=== PATIENT | female | born 1985 | race African-American/Black ===

== ENCOUNTER 2016-07-11 17:17 | Emergency (ER) | payer MEDICAID ==
[~2016-07-11] VITALS: Ht 165.1 cm; Wt 104.5 kg
[~2016-07-11 17:17] MED LIST: BENT20TA PO; PANT20 PO; ZITHTAB PO; ZOFR4TAB3 SL
[2016-07-11 17:19] VITALS: BP 140/71; PULSE 97; RESP 15; TEMP 98.2; O2SAT 100
--- NOTE | 2016-07-11 18:37 | PD ---
HPI Chief Complaint: Respiratory Distress Time Seen by Provider: 18:35 Travel History International Travel<30 days: No Contact w/Intl Traveler<30days: No Traveled to known affect area: No History of Present Illness HPI 31-year-old Afro-[place] female coming in with history of asthma, with 3 day history of increasing worsening wheezing and shortness of breath. She states no specific recent illness, but states she has had some chills. She is a nonsmoker. She states she had albuterol inhalers previously but ran out recently. He denies headache, sore throat, ear pain, or other respiratory symptoms. She denies heartburn or nausea, vomiting, or diarrhea. Patient has no known drug allergies. PFSH Past Medical History Asthma: Yes Blood Disorders: No Diabetes: Yes (Gestational diabetes) Diminished Hearing: No Respiratory: Yes Immunizations Current: Yes ?: Not LMP: jun 21 : 3 Para: 3 Past Surgical History Section: Yes Gynecologic Surgery: Yes Social History Alcohol Use: No Tobacco Use: No Substance Use: No Allergies-Medications (Allergen,Severity, Reaction): Coded Allergies: No Known Allergies (Verified , 07/11/16) Reported Meds & Prescriptions Reported Meds & Active Scripts Active Prednisone 20 Mg Tab 20 Mg PO BID Azithromycin 250 Mg Tab 250 Mg PO DIRECTED Take 2 tabs (500 mg) on day 1 then 1 tab daily x 4 days. Ventolin Hfa 18 GM Inh (Albuterol Sulfate) 90 Mcg/Act Aer 2 Puff INH Q4-6H PRN Protonix (Pantoprazole Sodium) 20 Mg Tab 20 Mg PO DAILY Bentyl (Dicyclomine HCl) 20 Mg Tab 20 Mg PO TID Zofran Odt (Ondansetron Odt) 4 Mg Tab 4 Mg SL Q6HR PRN Zithromax Z-Luis (Azithromycin) 250 Mg Dspk 250 Mg PO DIRECTED 500 MG (2 tabs) day 1, then 1 tab days 2-5. Review of Systems Except as stated in HPI: all other systems reviewed are Neg General / Constitutional: No: Fever Eyes: No: Visual changes HENT: No: Headaches Cardiovascular: No: Chest Pain or Discomfort Respiratory: Positive: Cough, Shortness of Breath, Wheezing Gastrointestinal: No: Abdominal Pain Genitourinary: No: Dysuria Musculoskeletal: No: Pain Skin: No Rash Neurologic: No: Weakness Psychiatric: No: Depression Endocrine: No: Polydipsia Hematologic/Lymphatic: No: Easy Bruising Physical Exam Narrative GENERAL: Patient appears mildly anxious and in mild respiratory distress. SKIN: Warm and dry. HEAD: Atraumatic. Normocephalic. EYES: Pupils equal and round. No scleral icterus. No injection or drainage. ENT: No nasal bleeding or discharge. Mucous membranes pink and moist. NECK: Trachea midline. No JVD. CARDIOVASCULAR: Regular rate and rhythm. RESPIRATORY: No accessory muscle use. Diffuse wheezes throughout to auscultation. Breath sounds are diminished throughout bilaterally. GASTROINTESTINAL: Abdomen soft, non-tender, nondistended. Hepatic and splenic margins not palpable. MUSCULOSKELETAL: Extremities without clubbing, cyanosis, or edema. No obvious deformities. NEUROLOGICAL: Awake and alert. No obvious cranial nerve deficits. Motor grossly within normal limits. Five out of 5 muscle strength in the arms and legs. Normal speech. PSYCHIATRIC: Appropriate mood and affect; insight and judgment normal. Data Data Last Documented VS Vital Signs Date Time Temp Pulse Resp B/P Pulse Ox O2 Delivery O2 Flow Rate FiO2 07/11/16 17:19 98.2 97 15 140/71 100 Orders Chest, Single Ap (07/11/16 18:34) Prednisone (Deltasone) (07/11/16 18:45) Albuterol-Ipratropium Neb (Duoneb Neb) (07/11/16 18:45) MDM Medical Decision Making Medical Screen Exam Complete: Yes Emergency Medical Condition: Yes Differential Diagnosis Asthma with acute exacerbation. Wheezing. Short of breath Narrative Course Patient is medically stable at time of exam. Patient is given prednisone 60 mg by mouth now. Patient is given DuoNeb 3 with symptomatic improvement. Chest x-ray shows no acute process per radiologist. Patient is felt to be stable be discharged home. Patient is discharged home with prednisone 20 mg twice a day for 7 days. Patient is given Ventolin metered-dose inhaler 2 puffs every 4-6 hours when necessary wheeze. Patient is given azithromycin Dosepak as well. Patient is to follow-up with primary care physician as discussed. Patient can return the emergency Department with worsening symptoms as needed. Diagnosis Primary Impression: Wheezy bronchitis Referrals: Primary Care Physician Patient Instructions: General Instructions Additional Instructions: Patient is medically stable at time of exam. Patient is given prednisone 60 mg by mouth now. Patient is given DuoNeb 3 with symptomatic improvement. Chest x-ray shows no acute process per radiologist. Patient is felt to be stable be discharged home. Patient is discharged home with prednisone 20 mg twice a day for 7 days. Patient is given Ventolin metered-dose inhaler 2 puffs every 4-6 hours when necessary wheeze. Patient is given azithromycin Dosepak as well. Patient is to follow-up with primary care physician as discussed. Patient can return the emergency Department with worsening symptoms as needed. Scripts Prednisone 20 Mg Tab20 Mg PO BID #14 TAB Prov:Zeny Sheikh MD 07/11/16 Azithromycin 250 Mg [id number] Mg PO DIRECTED #6 TAB Take 2 tabs (500 mg) on day 1 then 1 tab daily x 4 days. Prov:Zeny Sheikh MD 07/11/16 Albuterol 18 GM Inh (Ventolin Hfa 18 GM Inh)90 Mcg/Act Aer2 Puff INH Q4-6H PRN ( SHORTNESS OF BREATH) #1 INHALER Prov:Zeny Sheikh MD 07/11/16 Disposition: 01 DISCHARGE HOME Condition: Stable Dayday Quan Jul 11, 2016 18:36
[2016-07-11] MEDS: RESP: ALBUTEROL 2.5 MG/IPRATROPIUM 0.5 MG NEB (SCH) INH (18:38)
[2016-07-11] MEDS ORDERED: predniSONE 20 MG TAB PO ONE (18:45)
[2016-07-11] MEDS ORDERED: AZIT250T3 PO (19:11)
[2016-07-11] MEDS ORDERED: VENTAER INH (19:11)
[2016-07-11] MEDS ORDERED: PRED20 PO (19:11)
--- NOTE | 2016-07-11 21:16 | RADRPT ---
EXAM DATE/TIME: 07/11/2016 19:24 [facility] COMPARISON: CHEST SINGLE AP, April 02, 2016, 10:21. INDICATIONS : Cough, wheezing for 3 days MEDICAL HISTORY : None. SURGICAL HISTORY : None. ENCOUNTER: Initial ACUITY: 3 days PAIN SCORE: 0/10 LOCATION: Bilateral chest FINDINGS: A single view of the chest demonstrates the lungs to be symmetrically aerated without evidence of mas s, infiltrate or effusion. The cardiomediastinal contours are unremarkable. Osseous structures are intact. CONCLUSION: 1. No active disease. Nazario Healy MD on July 11, 2016 at 21:15 Board Certified Radiologist. This report was verified electronically.
== END 2016-07-11 20:00 | disposition home or self-care (01) ==
LOC: NEPB 17:17
DX: J40 Bronchitis, not specified as acute or chronic (principal); R06.2 Wheezing; Z87.09 Personal history of other diseases of the respiratory system
CPT/HCPCS: 71010; 94640; 94664; 99284; J7512

== ENCOUNTER 2016-10-06 15:45 | Emergency (ER) | payer MEDICAID ==
[~2016-10-06] VITALS: Ht 165.1 cm; Wt 99.2 kg
[~2016-10-06 15:45] MED LIST changes: +AZIT250T3 PO; +PRED20 PO; +VENTAER INH
[2016-10-06 15:48] VITALS: BP 143/88; PULSE 84; RESP 16; TEMP 98.3; O2SAT 100
[2016-10-06 16:43] LABS: MEAN CORPUSCULAR HGB CONC 29.8 % (32.0-36.0)
--- NOTE | 2016-10-06 16:45 | PD ---
HPI Chief Complaint: Respiratory Symptoms Time Seen by Provider: 15:54 Travel History International Travel<30 days: No Contact w/Intl Traveler<30days: No Traveled to known affect area: No History of Present Illness HPI This 31-year-old female says she is feeling tired and short of breath. She says she is feels weak all over. She says that yesterday she had trouble getting out of bed and when she did get up and walk she felt lightheaded. She has a history of anemia. She's been told is due to localized. She does have heavy periods. Her last one was 2 weeks ago. She has had bronchitis in the past. She does say that she eats corn starch about a pound and a half each week. She has never had a blood transfusion [facility], [facility] Past Medical History Medical History: Denies Significant Hx Hx Anticoagulant Therapy: No Asthma: Yes Blood Disorders: No Diabetes: No Diminished Hearing: No Respiratory: Yes (ASTHMA) Immunizations Current: Yes Influenza Vaccination: No ?: Not LMP: 2 WEEKS AGO : 3 Para: 3 Past Surgical History Section: Yes Gynecologic Surgery: Yes Social History Alcohol Use: Yes (RARELY) Tobacco Use: No Substance Use: No Allergies-Medications (Allergen,Severity, Reaction): Coded Allergies: No Known Allergies (Verified , 10/06/16) Reported Meds & Prescriptions Reported Meds & Active Scripts Active Review of Systems General / Constitutional: No: Fever, Chills Eyes: No: Diploplia, Blurred Vision HENT: Positive: Lightheadedness, No: Headaches Cardiovascular: No: Chest Pain or Discomfort, Palpitations Respiratory: Positive: Shortness of Breath Gastrointestinal: No: Nausea, Vomiting Genitourinary: No: Frequency Musculoskeletal: No: Myalgias Skin: No Rash Neurologic: Positive: Weakness, Dizziness, No: Syncope Hematologic/Lymphatic: No: Easy Bruising Physical Exam Narrative GENERAL: Well-developed female SKIN: Focused skin assessment warm/dry. HEAD: Atraumatic. Normocephalic. EYES: Pupils equal and round. No scleral icterus. No injection or drainage. There are pale ENT: No nasal bleeding or discharge. Mucous membranes pink and moist. NECK: Trachea midline. No JVD. CARDIOVASCULAR: Regular rate and rhythm. No murmur appreciated. RESPIRATORY: No accessory muscle use. Clear to auscultation. Breath sounds equal bilaterally. GASTROINTESTINAL: Abdomen soft, non-tender, nondistended. Hepatic and splenic margins not palpable. MUSCULOSKELETAL: No obvious deformities. No clubbing. No cyanosis. No edema. NEUROLOGICAL: Awake and alert. No obvious cranial nerve deficits. Motor grossly within normal limits. Normal speech. PSYCHIATRIC: Appropriate mood and affect; insight and judgment normal. Data Data Last Documented VS Vital Signs Date Time Temp Pulse Resp B/P Pulse Ox O2 Delivery O2 Flow Rate FiO2 10/06/16 18:26 85 16 113/77 100 Room Air 10/06/16 15:48 98.3 Orders Complete Blood Count With Diff (10/06/16 16:41) Comprehensive Metabolic Panel (10/06/16 16:41) Prothrombin Time / Inr (Pt) (10/06/16 16:41) Act Partial Throm Time (Ptt) (10/06/16 16:41) Urinalysis - C+S If Indicated (10/06/16 16:41) Thyroid Stimulating Hormone (10/06/16 16:41) Ed Urine Pregnancytest Poc (10/06/16 16:41) Iron/Tibc Profile (10/06/16 16:41) Labs Laboratory Tests Test 10/06/16 16:50 White Blood Count 8.0 TH/MM3 Red Blood Count 4.56 MIL/MM3 Hemoglobin 9.0 GM/DL Hematocrit 30.1 % Mean Corpuscular Volume 66.0 FL Mean Corpuscular Hemoglobin 19.7 PG Mean Corpuscular Hemoglobin 29.8 % Concent Red Cell Distribution Width 20.0 % Platelet Count 406 TH/MM3 Mean Platelet Volume 8.3 FL Neutrophils (%) (Auto) 63.2 % Lymphocytes (%) (Auto) 23.1 % Monocytes (%) (Auto) 7.8 % Eosinophils (%) (Auto) 5.5 % Basophils (%) (Auto) 0.4 % Neutrophils # (Auto) 5.1 TH/MM3 Lymphocytes # (Auto) 1.9 TH/MM3 Monocytes # (Auto) 0.6 TH/MM3 Eosinophils # (Auto) 0.4 TH/MM3 Basophils # (Auto) 0.0 TH/MM3 CBC Comment AUTO DIFF Differential Comment AUTO DIFF CONFIRMED Target Cells 1+ Ovalocytes 1+ Prothrombin Time 11.3 SEC Prothromb Time International 1.0 RATIO Ratio Activated Partial 25.5 SEC Thromboplast Time Urine Color YELLOW Urine Turbidity CLEAR Urine pH 6.5 Urine Specific [place] 1.031 Urine Protein NEG mg/dL Urine Glucose (UA) NEG mg/dL Urine Ketones TRACE mg/dL Urine Occult Blood NEG Urine Nitrite NEG Urine Bilirubin NEG Urine Leukocyte Esterase NEG Urine RBC 0-3 /hpf Urine WBC 0-2 /hpf Urine Squamous Epithelial 0-5 /hpf Cells Urine Bacteria OCC /hpf Urine Mucus MANY /lpf Urine Yeast (Budding) RARE Microscopic Urinalysis Comment CULT NOT INDICATED Sodium Level 142 MEQ/L Potassium Level 3.5 MEQ/L Chloride Level 108 MEQ/L Carbon Dioxide Level 25.9 MEQ/L Anion Gap 8 MEQ/L Blood Urea Nitrogen 12 MG/DL Creatinine 0.88 MG/DL Estimat Glomerular Filtration 90 ML/MIN Rate Random Glucose 87 MG/DL Calcium Level 8.5 MG/DL Total Bilirubin 0.3 MG/DL Aspartate Amino Transf 12 U/L (AST/SGOT) Alanine Aminotransferase 19 U/L (ALT/SGPT) Alkaline Phosphatase 75 U/L Total Protein 8.4 GM/DL Albumin 3.8 GM/DL Thyroid Stimulating Hormone 1.470 uIU/ML 3rd Gen [facility] Medical Decision Making Medical Screen Exam Complete: Yes Emergency Medical Condition: Yes Medical Record Reviewed: Yes Differential Diagnosis Differential includes pica, anemia,amylophagia Narrative Course Hemoglobin is 9. There are hyperchromic microcytic indices. This is most likely iron deficiency anemia. I will start the patient on iron and I recommended that she cut back on her Starch ingestion Diagnosis Primary Impression: Anemia Scripts Ferrous Sulfate (Iron)325 Mg Ief020 Mg PO BIDPC 30 Days Ref 0 Take after a meal. Prov:James Kaur MD 10/06/16 Disposition: 01 DISCHARGE HOME Condition: Stable James Kaur MD October 06, 2016 16:45
[2016-10-06 17:00] VITALS: BP 116/71; PULSE 90; RESP 16; O2SAT 100
[2016-10-06 17:04] LABS: BLOOD, URINE NEG (NEG); GLUCOSE,URINE NEG (NEG); KETONE, URINE TRACE mg/dL (NEG); NITRITE,URINE NEG (NEG); PH, URINE 6.5 (5.0-8.5)
[2016-10-06 17:10] LABS: CHLORIDE 108 MEQ/L (98-107); POTASSIUM 3.5 MEQ/L (3.5-5.1); SODIUM (NA) 142 MEQ/L (136-145)
[2016-10-06 17:14] LABS: ANION GAP 8 MEQ/L (5-15); APTT (PATIENT) 25.5 SEC (24.3-30.1); BICARBONATE 25.9 MEQ/L (21.0-32.0); BLOOD UREA NITROGEN 12 MG/DL (7-18); PROTHROMBIN TIME - PATIENT 11.3 SEC (9.8-11.6)
[2016-10-06 17:17] LABS: ALT (GPT) 19 U/L (10-53); AST (GOT) 12 U/L (15-37); GLOMERULAR FILTRATION RATE 90 ML/MIN (>89)
[2016-10-06 17:19] LABS: MUCUS URINE MANY /lpf (OCC); TOTAL BILIRUBIN ADULT 0.3 MG/DL (0.2-1.0); URINE COLOR YELLOW (YELLW/STRAW)
[2016-10-06 17:20] LABS: ALKALINE PHOSPHATASE 75 U/L (45-117); BACTERIA, URINE OCC /hpf; COMMENT (UR) CULT NOT INDICATED; CULTURE IF INDICATED CULT NOT INDICATED; RBC, URINE 0-3 /hpf (0-3); SQUAMOUS EPITHELIAL CELL URINE 0-5 /hpf (0-5); WBC, URINE 0-2 /hpf (0-5)
[2016-10-06 17:43] LABS: AUTOMATED NEUTROPHIL # 5.1 TH/MM3 (1.8-7.7); BASOPHIL % 0.4 % (0.0-2.0); EOSINOPHIL # 0.4 TH/MM3 (0-0.4); EOSINOPHIL % 5.5 % (0.0-4.0); HEMATOCRIT 30.1 % (35.0-46.0); LYMPH % 23.1 % (9.0-44.0); LYMPHOCYTE # 1.9 TH/MM3 (1.0-4.8); MEAN CORPUSCULAR HEMOGLOBIN 19.7 PG (27.0-34.0); MONO % 7.8 % (0.0-8.0); NEUT % 63.2 % (16.0-70.0); PLATELET COUNT 406 TH/MM3 (150-450); RED BLOOD COUNT 4.56 MIL/MM3 (4.00-5.30)
[2016-10-06 17:46] LABS: HEMO FLAGS AUTO DIFF
[2016-10-06 18:23] LABS: OVALOCYTES 1+ (NORMAL)
[2016-10-06 18:24] LABS: SCAN/DIFF AUTO DIFF CONFIRMED; TARGET CELLS 1+ (NORMAL)
[2016-10-06 18:26] VITALS: BP 113/77; PULSE 85; RESP 16; O2SAT 100
[2016-10-06] MEDS ORDERED: FERR1TAB36 PO (18:43)
[2016-10-06 18:46] LABS: TRANSFERRIN IRON PROFILE 337 MG/DL (200-360)
== END 2016-10-06 18:53 | disposition home or self-care (01) ==
LOC: PHED 15:45
DX: D64.9 Anemia, unspecified (principal)
CPT/HCPCS: 80053; 81001; 83540; 83550; 84443; 84703; 85025; 85610; 85730; 99284

== ENCOUNTER 2017-07-18 11:19 | Emergency (ER) | payer MEDICAID ==
[~2017-07-18] VITALS: Ht 165.1 cm; Wt 105.0 kg
[~2017-07-18 11:19] MED LIST changes: -AZIT250T3 PO; -BENT20TA PO; +FERR1TAB36 PO; -PANT20 PO; -PRED20 PO; -VENTAER INH; -ZITHTAB PO; -ZOFR4TAB3 SL
[2017-07-18 11:21] VITALS: BP 142/96; PULSE 88; RESP 12; TEMP 98.6; O2SAT 98
--- NOTE | 2017-07-18 12:35 | PD ---
HPI Chief Complaint: Cold / Flu Symptoms Time Seen by Provider: 12:21 Travel History International Travel<30 days: No Contact w/Intl Traveler<30days: No Traveled to known affect area: No History of Present Illness HPI 32-year-old Afro-[place] female presents to emergency Department with 3 day history of increasing upper respiratory congestion, headache, postnasal drip, sore throat, and cough which is worse at night. She's had chills but no specific significant fever. No nausea vomiting but one episode of diarrhea yesterday. Patient feels overall worse today with general body aches. She denies wheezing or shortness of breath. She has history of sinus trouble in the past as well as allergies. Patient has no known drug allergies. PFSH Past Medical History Hx Anticoagulant Therapy: No Asthma: Yes Blood Disorders: No Diabetes: Yes Diminished Hearing: No Respiratory: Yes (ASTHMA) Immunizations Current: Yes ?: Not LMP: 07/11/17 : 3 Para: 3 Past Surgical History Section: Yes Gynecologic Surgery: Yes Social History Alcohol Use: Yes (RARELY) Tobacco Use: No Substance Use: No Allergies-Medications (Allergen,Severity, Reaction): Coded Allergies: No Known Allergies (Verified Adverse Reaction, Unknown, 07/18/17) Reported Meds & Prescriptions Reported Meds & Active Scripts Active Aneta Allergy (Fexofenadine HCl) 180 Mg Tab 180 Mg PO DAILY Flonase Nasal [place] (Fluticasone Nasal [place]) 50 Mcg/Act [place] 100 Mcg EACH NARE BID Amoxicillin 875 Mg Tab 875 Mg PO BID 10 Days Iron (Ferrous Sulfate) 325 Mg Tab 325 Mg PO BIDPC 30 Days Take after a meal. Review of Systems Except as stated in HPI: all other systems reviewed are Neg General / Constitutional: Positive: Chills, No: Fever Eyes: No: Visual changes HENT: Positive: Headaches, Sore Throat, Rhinitis, Rhinorrhea, Congestion, No: Vertigo, Lightheadedness, Nosebleed, Neck Stiffness, Neck Pain, Dental Difficulties, Earache Cardiovascular: No: Chest Pain or Discomfort Respiratory: Positive: Cough, Other, No: Shortness of Breath, Wheezing, Sneezing, Orthopnea, Hemoptysis, Night Sweats, Pleuritic Pain Gastrointestinal: No: Nausea, Vomiting, Diarrhea (cough is worse at night.), Abdominal Pain Genitourinary: No: Dysuria Musculoskeletal: No: Pain Skin: No Rash Neurologic: No: Weakness Psychiatric: No: Depression Endocrine: No: Polydipsia Hematologic/Lymphatic: No: Easy Bruising Physical Exam Narrative GENERAL: Patient appears ill but not septic. SKIN: Warm and dry. Normal color. Normal turgor. HEAD: Atraumatic. Normocephalic. EYES: Pupils equal and round. No scleral icterus. No injection or drainage. ENT: No nasal bleeding with moderate yellow nasal discharge. Mucous membranes pink and moist. Shows mild generalized erythema with cobblestoning without significant swelling of the tonsils or uvula. Patient has bilateral sinus tenderness with palpation and percussion to both frontal and maxillary sinuses. Airway is patent. NECK: Trachea midline. Supple and nontender. CARDIOVASCULAR: Regular rate and rhythm. RESPIRATORY: No accessory muscle use. Clear to auscultation. Breath sounds equal bilaterally. GASTROINTESTINAL: Abdomen soft, non-tender, nondistended. Hepatic and splenic margins not palpable. MUSCULOSKELETAL: Extremities without clubbing, cyanosis, or edema. No obvious deformities. NEUROLOGICAL: Awake and alert. No obvious cranial nerve deficits. Motor grossly within normal limits. Five out of 5 muscle strength in the arms and legs. Normal speech. PSYCHIATRIC: Appropriate mood and affect; insight and judgment normal. Data Data Last Documented VS Vital Signs Date Time Temp Pulse Resp B/P (MAP) Pulse Ox O2 Delivery O2 Flow Rate FiO2 07/18/17 11:21 98.6 88 12 142/96 (111) 98 Orders Orders Influenzae A/B Antigen (07/18/17 11:27) [facility] Medical Decision Making Medical Screen Exam Complete: Yes Emergency Medical Condition: Yes Medical Record Reviewed: Yes Differential Diagnosis Allergic rhinitis. Sinusitis. Influenza. Narrative Course Patient medically stable at time of exam. Rapid influenza sent to the lab from triage. Rapid influenza A is positive. Patient is felt to have sinusitis with probable allergic rhinitis as well. Patient is given amoxicillin 875 twice a day 10 days. Patient is given Flonase nasal spray 2 sprays each nostril daily. She should rest, push fluids, and take Tylenol or ibuprofen as needed for aches and pains. Work note was given for the next 2 days. Patient can return if symptoms worsen as needed. Diagnosis Primary Impression: Sinusitis, acute Qualified Codes: J01.40 - Acute pansinusitis, unspecified Additional Impressions: Allergic rhinitis Qualified Codes: J30.1 - Allergic rhinitis due to pollen Influenza Referrals: Primary Care Physician Patient Instructions: Allergies (ED), General Instructions, H1N1 Influenza (ED) , Sinusitis (ED) Departure Forms: Work Release Enter return to work date: Jul 20, 2017 Additional Instructions: Rapid influenza A is positive. Patient is felt to have sinusitis with probable allergic rhinitis as well. Patient is given amoxicillin 875 twice a day 10 days. Patient is given Flonase nasal spray 2 sprays each nostril daily. She should rest, push fluids, and take Tylenol or ibuprofen as needed for aches and pains. Work note was given for the next 2 days. Patient can return if symptoms worsen as needed. Med/Other Pt SpecificInfo: Prescription(s) given Scripts Fexofenadine (Aneta Allergy) 180 Mg Tab 180 MG PO DAILY for Allergy Management, #30 TAB 0 Refills Prov: Masood Lynn MD 07/18/17 Fluticasone Nasal [place] (Flonase Nasal [place]) 50 Mcg/Act [place] 100 MCG EACH NARE BID for Allergies, #1 BOTTLE 0 Refills Prov: Masood Lynn MD 07/18/17 Amoxicillin (Amoxicillin) 875 Mg Tab 875 MG PO BID for Infection for 10 Days, #20 TAB 0 Refills Prov: Masood Lynn MD 07/18/17 Disposition: 01 DISCHARGE HOME Condition: Stable Dayday Quan Jul 18, 2017 12:35
[2017-07-18] MEDS ORDERED: FEXO15TA PO (13:56)
[2017-07-18] MEDS ORDERED: FLUT1SPR5 EACH NARE (13:56)
[2017-07-18] MEDS ORDERED: AMOX875T PO (13:56)
[2017-07-18] MEDS ORDERED: OSEL75 PO (14:12)
[2017-07-18 14:28] VITALS: BP 138/86
== END 2017-07-18 14:29 | disposition home or self-care (01) ==
LOC: NEPD 11:19
DX: J09.X2 Influenza due to identified novel influenza A virus with other respiratory manifestations (principal); J01.90 Acute sinusitis, unspecified; J30.1 Allergic rhinitis due to pollen; J45.909 Unspecified asthma, uncomplicated; E11.9 Type 2 diabetes mellitus without complications; Z79.899 Other long term (current) drug therapy
CPT/HCPCS: 87804; 99283

== ENCOUNTER 2017-07-22 14:05 | Emergency (ER) | payer MEDICAID ==
[~2017-07-22 14:05] MED LIST changes: +AMOX875T PO; +FEXO15TA PO; +FLUT1SPR5 EACH NARE; +OSEL75 PO
[2017-07-22 14:12] VITALS: BP 132/86; PULSE 89; RESP 16; TEMP 99; O2SAT 100
--- NOTE | 2017-07-22 15:06 | RADRPT ---
EXAM DATE/TIME: 07/22/2017 14:30 [facility] COMPARISON: CHEST SINGLE AP, April 02, 2016, 10:21. CHEST SINGLE AP, July 11, 2016, 19:24. INDICATIONS : Cough and shortness of breath. MEDICAL HISTORY : Asthma. SURGICAL HISTORY : None. ENCOUNTER: Initial ACUITY: 1 week PAIN SCORE: 0/10 LOCATION: Bilateral chest FINDINGS: PA and lateral views of the chest demonstrate an ill-defined opacity in the left upper lobe with some questionable air bronchograms ingesting a non-consolidative infiltrate. The right lung is clear. T he heart is normal in size. Both hemidiaphragms are well delineated. No evidence of pneumothorax. CONCLUSION: Small non-consolidative left upper lung infiltrate. Nasim Jarrell MD on July 22, 2017 at 15:04 Board Certified Radiologist. This report was verified electronically.
[2017-07-22] MEDS ORDERED: AZIT250T3 PO (15:45)
--- NOTE | 2017-07-22 15:49 | PD ---
HPI Chief Complaint: Cold / Flu Symptoms Time Seen by Provider: 15:40 Travel History International Travel<30 days: No Contact w/Intl Traveler<30days: No Traveled to known affect area: No History of Present Illness HPI 32-year-old female presents for persistent cough, congestion, myalgias, fatigue. She was seen here in July 18 and diagnosed with sinusitis and influenza a. She was prescribed amoxicillin, Flonase, Aneta, Tamiflu. She cannot afford the Tamiflu and did not started. She presents with persistent symptoms today. She reports that she was supposed return or 2 days ago but was unable to and was hoping to get additional time off. Symptoms are moderate, no aggravating or alleviating factors. Denies any other complaints at this time. PFSH Past Medical History Hx Anticoagulant Therapy: No Asthma: Yes Blood Disorders: No Diabetes: No Diminished Hearing: No Respiratory: Yes (ASTHMA) Immunizations Current: Yes : 3 Para: 3 Past Surgical History Section: Yes Gynecologic Surgery: Yes Social History Alcohol Use: Yes (RARELY) Tobacco Use: No Substance Use: No Allergies-Medications (Allergen,Severity, Reaction): Coded Allergies: No Known Allergies (Verified Adverse Reaction, Unknown, 07/18/17) Reported Meds & Prescriptions Reported Meds & Active Scripts Active Azithromycin 250 Mg Tab 250 Mg PO DIRECTED Take 2 tabs (500 mg) on day 1 then 1 tab daily x 4 days. Tamiflu (Oseltamivir Phosphate) 75 Mg Cap 75 Mg PO BID 5 Days Aneta Allergy (Fexofenadine HCl) 180 Mg Tab 180 Mg PO DAILY Flonase Nasal [place] (Fluticasone Nasal [place]) 50 Mcg/Act [place] 100 Mcg EACH NARE BID Amoxicillin 875 Mg Tab 875 Mg PO BID 10 Days Iron (Ferrous Sulfate) 325 Mg Tab 325 Mg PO BIDPC 30 Days Take after a meal. Review of Systems Except as stated in HPI: all other systems reviewed are Neg Physical Exam Narrative GENERAL: Well-nourished female in no acute distress SKIN: Warm and dry. HEAD: Atraumatic. Normocephalic. EYES: Pupils equal and round. No scleral icterus. No injection or drainage. ENT: No nasal bleeding or discharge. Mucous membranes pink and moist. NECK: Trachea midline. No JVD. CARDIOVASCULAR: Regular rate and rhythm. No murmur appreciated. RESPIRATORY: No accessory muscle use. Clear to auscultation. Breath sounds equal bilaterally. No crackles no wheezing Data Data Last Documented VS Vital Signs Date Time Temp Pulse Resp B/P (MAP) Pulse Ox O2 Delivery O2 Flow Rate FiO2 07/22/17 14:12 99.0 89 16 132/86 (101) 100 Room Air Orders Orders Chest, Pa & Lat (07/22/17 ) Ed Discharge Order (07/22/17 15:46) MDM Medical Decision Making Medical Screen Exam Complete: Yes Emergency Medical Condition: Yes Medical Record Reviewed: Yes Differential Diagnosis Influenza, sinusitis, bronchitis, pneumonia Narrative Course Physical examination is reassuring. She is not hypoxic, tachycardic, febrile. She does not appear dehydrated. Chest x-ray was obtained in triage revealing a small left upper lobe pneumonia. She will be started on azithromycin. Discussed signs and symptoms don't warrant returning to the emergency room. She is stable for discharge. Diagnosis Primary Impression: Pneumonia Departure Forms: Tests/Procedures, Work Release Enter return to work date: Jul 27, 2017 Additional Instructions: Medication as prescribed. Stay well-hydrated and well-nourished, get plenty of rest. Return for any acutely new or worsening symptoms. Med/Other Pt SpecificInfo: Prescription(s) given Scripts Azithromycin (Azithromycin) 250 Mg Tab 250 MG PO DIRECTED for Infection, #6 TAB 0 Refills Take 2 tabs (500 mg) on day 1 then 1 tab daily x 4 days. Prov: Quincy Remy MD 07/22/17 Disposition: 01 DISCHARGE HOME Condition: Stable Alex Valdivia Jul 22, 2017 15:49
== END 2017-07-22 16:00 | disposition home or self-care (01) ==
LOC: NEPK 14:05
DX: J18.9 Pneumonia, unspecified organism (principal); J45.909 Unspecified asthma, uncomplicated
CPT/HCPCS: 71046; 99283

== ENCOUNTER 2017-07-30 17:17 | Observation (INO) | payer MEDICAID ==
[~2017-07-30] VITALS: Ht 165.1 cm; Wt 110.2 kg
[~2017-07-30 17:17] MED LIST changes: +AZIT250T3 PO
[2017-07-30 17:20] VITALS: BP 119/75; PULSE 86; RESP 18; O2SAT 96
[2017-07-30] MEDS ORDERED: SODIUM CHLORIDE 0.9% FLUSH 10 ML FLUSH IVF PRN (18:15)
[2017-07-30 18:17] VITALS: BP_SYST 132; BP_SYST 135; BP_DIAS 68; BP_DIAS 82; PULSE 84; RESP 17; O2SAT 99
--- NOTE | 2017-07-30 18:22 | PD ---
HPI Chief Complaint: Chest Pain Time Seen by Provider: 18:02 Travel History International Travel<30 days: No Contact w/Intl Traveler<30days: No Traveled to known affect area: No History of Present Illness HPI 32-year-old female patient with history of flulike symptoms 2-1/2 weeks ago, followed by bronchitis, treated with Zithromax, here today because she was at work when she started having left-sided chest and arm discomfort which she currently rates at a 7 out of 10, tingling down the left arm, hurts more with arm movements. She denies any nausea, shortness of breath, or any other issues. She denies any previous history of similar symptoms. Modifying Factors: Worse with movements Associated Signs & Symptoms: Left-sided chest pains radiating down left arm, tingling and paresthesias Risk Factors: None PFSH Past Medical History Hx Anticoagulant Therapy: No Asthma: Yes Blood Disorders: No Diabetes: No Diminished Hearing: No Respiratory: Yes (ASTHMA) Immunizations Current: Yes Pneumonia: Yes Tetanus Vaccination: Unknown ?: Not LMP: 1 wek ago : 3 Para: 3 Past Surgical History Section: Yes Gynecologic Surgery: Yes Social History Alcohol Use: Yes (RARELY) Tobacco Use: No Substance Use: No Allergies-Medications (Allergen,Severity, Reaction): Coded Allergies: No Known Allergies (Verified Adverse Reaction, Unknown, 07/30/17) Reported Meds & Prescriptions Reported Meds & Active Scripts Active No Active Prescriptions or Reported Medications Review of Systems Except as stated in HPI: all other systems reviewed are Neg Physical Exam Narrative GENERAL: Well-developed young -[place] female patient currently in mild distress. Appears anxious. Awake and oriented 3. SKIN: Focused skin assessment warm/dry. HEAD: Atraumatic. Normocephalic. EYES: Pupils equal and round. No scleral icterus. No injection or drainage. ENT: No nasal bleeding or discharge. Mucous membranes pink and moist. NECK: Trachea midline. No JVD. Supple. CARDIOVASCULAR: Regular rate and rhythm. No murmur appreciated. Pulses are present and equal bilaterally. RESPIRATORY: No accessory muscle use. Clear to auscultation. Breath sounds equal bilaterally. GASTROINTESTINAL: Abdomen soft, non-tender, nondistended. Hepatic and splenic margins not palpable. MUSCULOSKELETAL: No obvious deformities. No clubbing. No cyanosis. No edema. NEUROLOGICAL: Awake and alert. No obvious cranial nerve deficits. Motor grossly within normal limits. Normal speech. PSYCHIATRIC: Appropriate mood and affect; insight and judgment normal. Data Data Last Documented VS Vital Signs Date Time Temp Pulse Resp B/P (MAP) Pulse Ox O2 Delivery O2 Flow Rate FiO2 07/30/17 19:17 87 20 119/76 (90) 97 07/30/17 18:17 Room Air Orders Orders Electrocardiogram (07/30/17 18:02) Basic Metabolic Panel (Bmp) (07/30/17 18:02) Ckmb (Isoenzyme) Profile (07/30/17 18:02) Complete Blood Count With Diff (07/30/17 18:) D-Dimer (07/30/17 18:) Magnesium (Mg) (07/30/17 18:02) Prothrombin Time / Inr (Pt) (07/30/17 18:02) Act Partial Throm Time (Ptt) (07/30/17 18:02) Troponin I (07/30/17 18:02) Ecg Monitoring (07/30/17 18:02) Bilateral Bp Monitoring (07/30/17 18:02) Iv Access Insert/Monitor (07/30/17 18:02) Oximetry (07/30/17 18:02) Oxygen Administration (07/30/17 18:02) Sodium Chloride 0.9% Flush (Ns Flush) (07/30/17 18:15) Chest, Pa & Lat (07/30/17 18:02) Ed Urine Pregnancytest Poc (07/30/17 18:02) CKMB (07/30/17 18:00) CKMB% (07/30/17 18:00) Ct Pulmonary Angiogram (07/30/17 19:11) Iohexol 350 Inj (Omnipaque 350 Inj) (07/30/17 20:09) Admit Order (Ed Use Only) (07/30/17 20:40) Labs Laboratory Tests Test 07/30/17 18:00 White Blood Count 8.4 TH/MM3 Red Blood Count 4.18 MIL/MM3 Hemoglobin 8.5 GM/DL Hematocrit 28.1 % Mean Corpuscular Volume 67.3 FL Mean Corpuscular Hemoglobin 20.4 PG Mean Corpuscular Hemoglobin Concent 30.4 % Red Cell Distribution Width 18.9 % Platelet Count 456 TH/MM3 Mean Platelet Volume 8.3 FL Neutrophils (%) (Auto) 63.1 % Lymphocytes (%) (Auto) 25.2 % Monocytes (%) (Auto) 5.9 % Eosinophils (%) (Auto) 3.1 % Basophils (%) (Auto) 2.7 % Neutrophils # (Auto) 5.3 TH/MM3 Lymphocytes # (Auto) 2.1 TH/MM3 Monocytes # (Auto) 0.5 TH/MM3 Eosinophils # (Auto) 0.3 TH/MM3 Basophils # (Auto) 0.2 TH/MM3 CBC Comment AUTO DIFF Differential Comment AUTO DIFF CONFIRMED Platelet Estimate HIGH Platelet Morphology Comment NORMAL Target Cells 1+ Ovalocytes 1+ Prothrombin Time 10.7 SEC Prothromb Time International Ratio 1.1 RATIO Activated Partial Thromboplast Time 27.2 SEC D-Dimer Quantitative (PE/DVT) 0.67 MG/L FEU Blood Urea Nitrogen 12 MG/DL Creatinine 0.86 MG/DL Random Glucose 79 MG/DL Calcium Level 8.8 MG/DL Magnesium Level 2.1 MG/DL Sodium Level 137 MEQ/L Potassium Level 3.8 MEQ/L Chloride Level 105 MEQ/L Carbon Dioxide Level 25.6 MEQ/L Anion Gap 6 MEQ/L Estimat Glomerular Filtration Rate 92 ML/MIN Total Creatine Kinase 312 U/L Creatine Kinase MB 1.1 NG/ML Creatine Kinase MB % 0.4 % Troponin I LESS THAN 0.02 NG/ML MDM Medical Decision Making Medical Screen Exam Complete: Yes Emergency Medical Condition: Yes Medical Record Reviewed: Yes Interpretation(s) EKG shows normal sinus rhythm at a rate of 83 bpm with no signs of acute ST elevations or depressions. Laboratory Tests Test 07/30/17 18:00 Hemoglobin 8.5 GM/DL (11.6-15.3) Hematocrit 28.1 % (35.0-46.0) Mean Corpuscular Volume 67.3 FL (80.0-100.0) Mean Corpuscular Hemoglobin 20.4 PG (27.0-34.0) Mean Corpuscular Hemoglobin Concent 30.4 % (32.0-36.0) Red Cell Distribution Width 18.9 % (11.6-17.2) Platelet Count 456 TH/MM3 (150-450) Basophils (%) (Auto) 2.7 % (0.0-2.0) Platelet Estimate HIGH (NORMAL) Target Cells 1+ (NORMAL) Ovalocytes 1+ (NORMAL) D-Dimer Quantitative (PE/DVT) 0.67 MG/L FEU (0.00-0.50) Total Creatine Kinase 312 U/L (26-192) Troponin I LESS THAN 0.02 NG/ML Last [address] Angiography 07/30/171910 Signed Impressions: Service Date/Time: July 19:58 - CONCLUSION: 1. No evidence of pulmonary embolism. 2. Soft tissue density within the anterior mediastinum measuring 2.8 x 1.6 cm which is indeterminate. Although this may represent residual thymic tissue, lymphoma remains in the differential. Outpatient PET/ CT scan may be helpful for further evaluation of this finding if clinically indicated. 3. Mild cardiomegaly. Bakari Alexis MD Chest X-Ray 07/30/171801 Signed Impressions: Service Date/Time: July 18:12 - CONCLUSION: Cardiomegaly. No pulmonary vascular congestion or focal infiltrate. Bakari Alexis MD Differential Diagnosis ACS versus anxiety attack versus metabolic issues versus dysrhythmias Narrative Course CAT scan did not show any signs of PE and chest x-ray was unremarkable. D- dimer was slightly elevated. 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 Patient has been notified. Cardiac enzymes were negative and lab work was otherwise unremarkable. Her EKG did not show any signs of acute ST changes. Symptoms are fairly atypical. At this point, my plan would be to admit the patient to chest pain center for further evaluation. Case is discussed with Dr. Allen for admission. Diagnosis Primary Impression: Atypical chest pain Admitting Information Admitting Physician Requests: Admit Scripts No Active Prescriptions or Reported Meds Tre Ash MD Jul 30, 2017 18:22
[2017-07-30 18:28] LABS: AUTOMATED NEUTROPHIL # 5.3 TH/MM3 (1.8-7.7); BASOPHIL # 0.2 TH/MM3 (0-0.2); BASOPHIL % 2.7 % (0.0-2.0); EOSINOPHIL # 0.3 TH/MM3 (0-0.4); EOSINOPHIL % 3.1 % (0.0-4.0); HEMATOCRIT 28.1 % (35.0-46.0); HEMOGLOBIN 8.5 GM/DL (11.6-15.3); LYMPH % 25.2 % (9.0-44.0); LYMPHOCYTE # 2.1 TH/MM3 (1.0-4.8); MEAN CELL VOLUME 67.3 FL (80.0-100.0); MEAN CORPUSCULAR HEMOGLOBIN 20.4 PG (27.0-34.0); MEAN CORPUSCULAR HGB CONC 30.4 % (32.0-36.0); MEAN PLATELET VOLUME 8.3 FL (7.0-11.0); MONO % 5.9 % (0.0-8.0); MONOCYTE # 0.5 TH/MM3 (0-0.9); NEUT % 63.1 % (16.0-70.0); PLATELET COUNT 456 TH/MM3 (150-450); RED BLOOD COUNT 4.18 MIL/MM3 (4.00-5.30); RED CELL DISTRIBUTION WIDTH 18.9 % (11.6-17.2); WHITE BLOOD COUNT 8.4 TH/MM3 (4.0-11.0)
[2017-07-30 18:39] LABS: CHLORIDE 105 MEQ/L (98-107); SODIUM (NA) 137 MEQ/L (136-145)
[2017-07-30 18:41] LABS: CALCIUM 8.8 MG/DL (8.5-10.1)
[2017-07-30 18:42] LABS: BICARBONATE 25.6 MEQ/L (21.0-32.0); BLOOD UREA NITROGEN 12 MG/DL (7-18); GLUCOSE,RANDOM 79 MG/DL (74-106); MAGNESIUM 2.1 MG/DL (1.5-2.5)
[2017-07-30 18:45] LABS: CREATININE 0.86 MG/DL (0.50-1.00); GLOMERULAR FILTRATION RATE 92 ML/MIN (>89)
--- NOTE | 2017-07-30 18:49 | RADRPT ---
EXAM DATE/TIME: 07/30/2017 18:12 [facility] COMPARISON: CHEST PA & LAT, July 22, 2017, 14:30. INDICATIONS : Shortness of breath, cough, chest pain, numbness down left arm. MEDICAL HISTORY : Asthma. SURGICAL HISTORY : None. ENCOUNTER: Initial ACUITY: 1 week PAIN SCORE: 7/10 LOCATION: Bilateral chest FINDINGS: Cardiomegaly is noted. The pulmonary vascular pattern is normal. The lungs are clear. CONCLUSION: Cardiomegaly. No pulmonary vascular congestion or focal infiltrate. Bakari Alexis MD on July 30, 2017 at 18:47 Board Certified Radiologist. This report was verified electronically.
[2017-07-30 18:50] LABS: TROPONIN I LESS THAN 0.02 NG/ML (0.02-0.05)
[2017-07-30 18:53] LABS: INTERNATIONAL NORMALIZED RATIO 1.1 RATIO; PROTHROMBIN TIME - PATIENT 10.7 SEC (9.8-11.6)
[2017-07-30 19:04] LABS: TARGET CELLS 1+ (NORMAL)
[2017-07-30 19:05] LABS: D-DIMER 0.67 MG/L FEU (0.00-0.50); OVALOCYTES 1+ (NORMAL)
[2017-07-30 19:17] VITALS: BP 119/76; PULSE 87; RESP 20; O2SAT 97
[2017-07-30] MEDS ORDERED: IOHEXOL 350 MG/ML 10 ML VIAL (for RAD DIAG) IVCONTRAST ONE (20:09)
--- NOTE | 2017-07-30 20:19 | RADRPT ---
EXAM DATE/TIME: 07/30/2017 19:58 [facility] COMPARISON: No previous studies available for comparison. INDICATIONS : Left sided chest pain and arm numbness. IV CONTRAST: 80 cc Omnipaque 350 (iohexol) IV RADIATION DOSE: 21.27 CTDIvol (mGy) MEDICAL HISTORY : Asthma SURGICAL HISTORY : section. ENCOUNTER: Initial ACUITY: 1 day PAIN SCALE: 7/10 LOCATION: chest TECHNIQUE: Volumetric scanning of the chest was performed using a pulmonary embolism protocol MIP images were re constructed. Using automated exposure control and adjustment of the mA and/or kV according to patien t size, radiation dose was kept as low as reasonably achievable to obtain optimal diagnostic quality images. DICOM format image data is available electronically for review and comparison. Follow-up recommendations for detected pulmonary nodules are based at a minimum on nodule size and pa tient risk factors according to Fleischner Society Guidelines. FINDINGS: PULMONARY ARTERIES: No filling defects are seen in the pulmonary arteries through the segmental level. LUNGS: There is no consolidation or pneumothorax . No concerning pulmonary nodule is visualized. PLEURAE: There is no pleural thickening or pleural effusion. MEDIASTINUM: There is soft tissue density within the anterior mediastinum. This soft tissue density measures 2.8 x 1.6 cm. Although this may represent residual thymus tissue, lymphoma remains in the differential. PE T/CT scan may be helpful to determine if this demonstrates hypermetabolism if clinically indicated. M ild cardiomegaly. MUSCULOSKELETAL: Within normal limits for patient age. MISCELLANEOUS: The visualized upper abdominal organs demonstrate no acute abnormality. CONCLUSION: 1. No evidence of pulmonary embolism. 2. Soft tissue density within the anterior mediastinum measuring 2.8 x 1.6 cm which is indeterminate. Although this may represent residual thymic tissue, lymphoma remains in the differential. Outpatient PET/CT scan may be helpful for further evaluation of this finding if clinically indicated. 3. Mild cardiomegaly. Bakari Alexis MD on July 30, 2017 at 20:12 Board Certified Radiologist. This report was verified electronically.
[2017-07-30] MEDS ORDERED: SODIUM CHLORIDE 0.9% FLUSH 10 ML FLUSH IV FLUSH PRN (20:45)
[2017-07-30] MEDS: SODIUM CHLORIDE 0.9% FLUSH 10 ML FLUSH IV FLUSH SCH (21:00)
[2017-07-30 21:36] LABS: TROPONIN I LESS THAN 0.02 NG/ML (0.02-0.05)
[2017-07-30 21:45] VITALS: BP 118/71
[2017-07-30 21:52] VITALS: BP 135/83; PULSE 80; RESP 22; TEMP 97.4; O2SAT 98
[2017-07-30] MEDS: ACETAMINOPHEN/HYDROcodone 325 MG/7.5 MG TAB PO PRN (22:47)
[2017-07-30 23:53] LABS: TROPONIN I LESS THAN 0.02 NG/ML (0.02-0.05)
[2017-07-31] VITALS: BP 122/74; PULSE 76; RESP 22; TEMP 96.8; O2SAT 98
[2017-07-31] MEDS: MORPHINE SULFATE 4 MG/ML INJ IV PUSH PRN ×2 (00:31→11:57)
[2017-07-31 04:00] VITALS: BP 106/60; PULSE 74; RESP 22; TEMP 97; O2SAT 99
[2017-07-31 08:00] VITALS: BP 125/67; PULSE 79; RESP 14; TEMP 98.5; O2SAT 97
[2017-07-31] MEDS: SODIUM CHLORIDE 0.9% FLUSH 10 ML FLUSH IV FLUSH SCH (08:50)
[2017-07-31] MEDS: ACETAMINOPHEN/HYDROcodone 325 MG/7.5 MG TAB PO PRN (08:50)
[2017-07-31 10:10] VITALS: PULSE 72
--- NOTE | 2017-07-31 11:32 | EKG ---
Date Performed: 07/30/2017 Time Performed: 17:29:52 PTAGE: 32 years EKG: Sinus rhythm NORMAL ECG PREVIOUS TRACING : 12/15/2003 18.58 Baseline artifact. Since the prior tracing, there has been no significant change. DOCTOR: Yessenia Hernadez Interpretating Date/Time 07/31/2017 11:31:38
--- NOTE | 2017-07-31 11:33 | EKG ---
Date Performed: 07/30/2017 Time Performed: 20:51:51 PTAGE: 32 years EKG: Sinus rhythm WITH FIRST DEGREE AV BLOCK ABNORMAL ECG PREVIOUS TRACING : 07/30/2017 17.29 When compared to prior EKG, patient now has a first degree AV block. DOCTOR: Yessenia Hernadez Interpretating Date/Time 07/31/2017 11:31:59
--- NOTE | 2017-07-31 11:33 | EKG ---
Date Performed: 07/30/2017 Time Performed: 22:36:53 PTAGE: 32 years EKG: Sinus rhythm WITH FIRST DEGREE AV BLOCK ABNORMAL ECG PREVIOUS TRACING : 07/30/2017 20.51 Since the prior tracing, there has been no significant andres DOCTOR: Yessenia Hernadez Interpretating Date/Time 07/31/2017 11:32:06
--- NOTE | 2017-07-31 11:51 | HHI.HP ---
[facility] Primary [facility] Physician Zane Sneed MD Admission Diagnosis Chest pain Diagnoses: (1) Atypical chest pain Diagnosis: Principal Chief Complaint: Chest pain Travel History International Travel<30 Days: No Contact w/Intl Traveler <30 Da: No Traveled to Known Affected Are: No History of Present Illness 32-year-old female with known history of asthma who presented to the hospital for evaluation chest pain. Patient was in a normal state of health yesterday, when she was at work she was walking and then started developing a sudden onset of chest discomfort. Patient states that is located in the left upper anterior chest with radiation to the neck, left shoulder. She has some associated nausea , shortness of breath, dizziness. The pain was sharp pain 10/10 on a pain scale. The last for a couple minutes at a time. She continued to have intermittent discomfort until the last time she had numbness in her left arm for approximately 5 minutes. Because of that she came to the emergency department for evaluation. Patient had workup done emergency department is recommended by ER physician the patient be observed in the chest pain center for further evaluation and management. Patient states that she just got over bronchitis/pneumonia of the left upper lung one week ago. She has had some difficulty breathing since then. The pain is reproducible on palpation. Review of Systems Constitutional: COMPLAINS OF: Dizziness Respiratory: COMPLAINS OF: Shortness of breath Cardiovascular: COMPLAINS OF: Chest pain Except as stated in HPI: all other systems reviewed are Neg Past Family Social History Past Medical History Asthma Past Surgical History 2 Reported Medications Reported Meds & Active Scripts Active No Active Prescriptions or Reported Medications Allergies: Coded Allergies: No Known Allergies (Verified Adverse Reaction, Unknown, 07/30/17) Family History Reviewed is significant for early onset heart disease, father at age 42 from myocardial infarction Social History Patient denies any tobacco, alcohol or illicit drugs Physical Exam Vital Signs Vital Signs Date Time Temp Pulse Resp B/P (MAP) Pulse Ox O2 Delivery O2 Flow Rate FiO2 07/31/17 10:10 72 07/31/17 08:00 98.5 79 14 125/67 (86) 97 07/31/17 04:00 97.0 74 22 106/60 (75) 99 07/31/17 00:00 96.8 76 22 122/74 (90) 98 07/30/17 21:52 97.4 80 22 135/83 (100) 98 07/30/17 21:52 98 21 07/30/17 21:45 77 16 118/71 (87) 100 07/30/17 19:17 87 20 119/76 (90) 97 07/30/17 18:17 99 Room Air 07/30/17 18:17 84 17 132/68 (89) 99 Room Air 135/82 (99) 07/30/17 18:17 Room Air 07/30/17 17:30 97 Room Air 07/30/17 17:20 86 18 119/75 (90) 96 Physical Exam GENERAL: Well-developed, well-nourished, in no acute distress. alert and orientated HEENT: Head is normocephalic without any lesions or masses noted. Facial features are symmetric. Eyes: Pupils equal round reactive to light. Extraocular muscles are intact. Conjunctivae were clear. Oropharyngeal: Pharynx without any erythema edema. Tongue is midline without deviation. Buccal mucosa is moist without any masses or lesions NECK: Supple without any masses. Trachea midline no deviation. No JVD, no bruits are appreciated CARDIAC: Regular rhythm, regular rate. S1/S2 are heard. No murmurs gallops or rubs. Reproducible palpable tenderness noted in the left anterior chest. LUNGS: Clear to auscultation bilaterally. No wheeze, rhonchi or rales. No use of accessory muscles on inspiration or expiration. ABDOMEN: Soft, nontender. Nondistended. Bowel sounds heard in all 4 quadrants. No organomegaly or masses. Negative rebound, negative guarding EXTREMITIES: No edema, pulses are equal bilaterally. No cyanosis or clubbing NEUROLOGY: Mood and affect appear appropriate. Cranial nerves II through XII grossly intact. Muscle strength 5/5 in upper and lower extremities bilaterally. Deep tendon reflexes are 2+ in upper and lower extremities bilaterally. Laboratory Laboratory Tests Test 07/30/17 18:00 07/30/17 21:00 07/30/17 23:20 White Blood Count 8.4 Red Blood Count 4.18 Hemoglobin 8.5 Hematocrit 28.1 Mean Corpuscular Volume 67.3 Mean Corpuscular Hemoglobin 20.4 Mean Corpuscular Hemoglobin Concent 30.4 Red Cell Distribution Width 18.9 Platelet Count 456 Mean Platelet Volume 8.3 Neutrophils (%) (Auto) 63.1 Lymphocytes (%) (Auto) 25.2 Monocytes (%) (Auto) 5.9 Eosinophils (%) (Auto) 3.1 Basophils (%) (Auto) 2.7 Neutrophils # (Auto) 5.3 Lymphocytes # (Auto) 2.1 Monocytes # (Auto) 0.5 Eosinophils # (Auto) 0.3 Basophils # (Auto) 0.2 CBC Comment AUTO DIFF Differential Comment AUTO DIFF CONFIRMED Platelet Estimate HIGH Platelet Morphology Comment NORMAL Target Cells 1+ Ovalocytes 1+ Prothrombin Time 10.7 Prothromb Time International Ratio 1.1 Activated Partial Thromboplast Time 27.2 D-Dimer Quantitative (PE/DVT) 0.67 Blood Urea Nitrogen 12 Creatinine 0.86 Random Glucose 79 Calcium Level 8.8 Magnesium Level 2.1 Sodium Level 137 Potassium Level 3.8 Chloride Level 105 Carbon Dioxide Level 25.6 Anion Gap 6 Estimat Glomerular Filtration Rate 92 Total Creatine Kinase 312 288 236 Creatine Kinase MB 1.1 0.7 0.8 Creatine Kinase MB % 0.4 0.2 0.3 Troponin I LESS THAN 0.02 LESS THAN 0.02 LESS THAN 0.02 Result Diagram: 07/30/17 1800 07/30/17 [address] Angiography 07/30/17 1911 Signed Impressions: Service Date/Time: July 19:58 - CONCLUSION: 1. No evidence of pulmonary embolism. 2. Soft tissue density within the anterior mediastinum measuring 2.8 x 1.6 cm which is indeterminate. Although this may represent residual thymic tissue, lymphoma remains in the differential. Outpatient PET/ CT scan may be helpful for further evaluation of this finding if clinically indicated. 3. Mild cardiomegaly. Bakari Alexis MD Chest X-Ray 07/30/17 180 Signed Impressions: Service Date/Time: July 18:12 - CONCLUSION: Cardiomegaly. No pulmonary vascular congestion or focal infiltrate. MD Kary Juarezi VTE Risk Assessment Caprini VTE Risk Assessment: No/Low Risk (score <= 1) Caprini Risk Assessment Model Point Value = 1 Point Value = 2 Point Value = 3 Point Value = 5 Age 41-60 Minor surgery BMI > 25 kg/m2 Swollen legs Varicose veins or History of unexplained or recurrent spontaneous Oral contraceptives or hormone replacement Sepsis (< 1 month) Serious lung disease, including pneumonia (< 1 month) Abnormal pulmonary function Acute myocardial infarction Congestive heart failure (< 1 month) History of inflammatory bowel disease Medical patient at bed rest Age 61-74 Arthroscopic surgery Major open surgery (> 45 min) Laparoscopic surgery (> 45 min) Malignancy Confined to bed (> 72 hours) Immobilizing plaster cast Central venous access Age >= 75 History of VTE Family history of VTE Factor V Leiden Prothrombin [id number] Lupus anticoagulant Anticardiolipin antibodies Elevated serum homocysteine Heparin-induced thrombocytopenia Other congenital or acquired thrombophilia Stroke (< 1 month) Elective arthroplasty Hip, pelvis, or leg fracture Acute spinal cord injury (< 1 month) Prophylaxis Regimen Total Risk Factor Score Risk Level Prophylaxis Regimen 0-1 Low Early ambulation 2 Moderate Order ONE of the following: *Sequential Compression Device (SCD) *Heparin 5000 units SQ BID 3-4 Higher Order ONE of the following medications: *Heparin 5000 units SQ TID *Enoxaparin/Lovenox 40 mg SQ daily (WT < 150 kg, CrCl > 30 mL/min) *Enoxaparin/Lovenox 30 mg SQ daily (WT < 150 kg, CrCl > 10-29 mL/min) *Enoxaparin/Lovenox 30 mg SQ BID (WT < 150 kg, CrCl > 30 mL/min) AND/OR *Sequential Compression Device (SCD) 5 or more Highest Order ONE of the following medications: *Heparin 5000 units SQ TID (Preferred with Epidurals) *Enoxaparin/Lovenox 40 mg SQ daily (WT < 150 kg, CrCl > 30 mL/min) *Enoxaparin/Lovenox 30 mg SQ daily (WT < 150 kg, CrCl > 10-29 mL/min) *Enoxaparin/Lovenox 30 mg SQ BID (WT < 150 kg, CrCl > 30 mL/min) AND *Sequential Compression Device (SCD) Assessment and Plan Assessment and Plan Chest pain, atypical Risk factors include body habitus, early onset family heart disease Patient has been ruled out for acute coronary event with serial cardiac enzymes that are negative Serial EKGs show first-degree AV block without any changes Exercise stress test was performed, there is no indication of any ischemia. Low exercise ability Continue aspirin, nitroglycerin as needed, pain control CT scan abnormality CT scan does indicate anterior mediastinum soft tissue density which could represent thymic tissue, lipoma. Recommending outpatient PET/CT scan Patient should follow-up with primary medical doctor for further evaluation and management DVT prevention low risk, early ambulation Discharge disposition Discharge home in stable condition Activity: Ad tin. Diet: Healthy heart diet Medications per medication reconciliation Follow-up primary medical doctor in one week, patient will require outpatient PET/CT scan Quincy Matute Jul 31, 2017 11:51
[2017-07-31 12:00] VITALS: BP 119/78; PULSE 78; RESP 12; TEMP 97.7; O2SAT 96
--- NOTE | 2017-07-31 14:43 | HHI.DCPOC ---
Discharge Care Plan Diagnosis: (1) Atypical chest pain Goals to Promote Your Health * To prevent worsening of your condition and complications * To maintain your health at the optimal level Directions to Meet Your Goals Take your medications as prescribed Follow your dietary instruction Follow activity as directed Keep your appointments as scheduled Take your immunizations and boosters as scheduled If your symptoms worsen call your PCP, if no PCP go to Urgent Care Center or Emergency Room Smoking is Dangerous to Your Health. Avoid second hand smoke Call the 24-hour hour crisis hotline for domestic abuse at Quin[facility] Matute Jul 31, 2017 14:43
--- NOTE | 2017-07-31 15:20 | TR ---
Date Performed: 07/31/2017 Time Performed: 14:10:22 DOCTOR: Andrea Butler DRUG LIST: CLINICAL HISTORY: REASON FOR TEST: REASON FOR ENDING: Fatigue/Weakness OBSERVATION: Arrhythmia: None Chest Pain: None CONCLUSION: Patient tolerated GABE protocol for Total Exercise Time=3:42 Maximum RZ=819 % Targe t HR Vugozsey=926.0% Maximum OK=237/82, Testing stopped secondary to physical ability, SOB, goals ach eived, During Peak exercise patient was asymptomatic, Quick upsloping ST segments. HR and BP appropri ate response to exercise. Recovery period, HR and BP returned to baseline COMMENTS: Patient exercised using the Gabe protocol. No electrocardiographic changes were seen to suggest ischemia. Hemodynamic response to exercise was normal. No significant arrhythmia was prese nt.
== END 2017-07-31 15:20 | disposition home or self-care (01) ==
LOC: PHED 17:17 → PHEDA 20:40 → PH3B 21:52
PROVIDERS: ADMIT Hospitalist; ATTEND Hospitalist
DX: R07.89 Other chest pain (principal); R53.83 Other fatigue; R53.1 Weakness; R05 Cough; I44.0 Atrioventricular block, first degree; R06.02 Shortness of breath; R11.0 Nausea; R61 Generalized hyperhidrosis; R20.0 Anesthesia of skin; J45.909 Unspecified asthma, uncomplicated; I51.7 Cardiomegaly; R94.31 Abnormal electrocardiogram [ECG] [EKG]
CPT/HCPCS: 71046; 71275; 80048; 82550; 82552; 83735; 84484; 84703; 85025; 85379; 85610; 85730; 93005; 93017; 96374; 96376; 99285; G0378; J2270; Q9967

== ENCOUNTER 2017-08-10 12:45 | Emergency (ER) | payer MEDICAID ==
[~2017-08-10] VITALS: Ht 165.1 cm; Wt 110.0 kg
[2017-08-10 12:50] VITALS: BP 152/97; PULSE 106; RESP 18; TEMP 99.3; O2SAT 99
[2017-08-10 13:40] LABS: AUTOMATED NEUTROPHIL # 5.2 TH/MM3 (1.8-7.7); BASOPHIL # 0.1 TH/MM3 (0-0.2); BASOPHIL % 1.2 % (0.0-2.0); EOSINOPHIL # 0.4 TH/MM3 (0-0.4); EOSINOPHIL % 4.6 % (0.0-4.0); HEMATOCRIT 29.1 % (35.0-46.0); HEMOGLOBIN 8.8 GM/DL (11.6-15.3); LYMPH % 18.9 % (9.0-44.0); LYMPHOCYTE # 1.5 TH/MM3 (1.0-4.8); MEAN CELL VOLUME 67.2 FL (80.0-100.0); MEAN CORPUSCULAR HEMOGLOBIN 20.4 PG (27.0-34.0); MEAN CORPUSCULAR HGB CONC 30.3 % (32.0-36.0); MONO % 6.2 % (0.0-8.0); MONOCYTE # 0.5 TH/MM3 (0-0.9); NEUT % 69.1 % (16.0-70.0); PLATELET COUNT 383 TH/MM3 (150-450); RED BLOOD COUNT 4.33 MIL/MM3 (4.00-5.30); RED CELL DISTRIBUTION WIDTH 19.3 % (11.6-17.2); WHITE BLOOD COUNT 7.7 TH/MM3 (4.0-11.0)
[2017-08-10 13:55] LABS: CHLORIDE 105 MEQ/L (98-107); SODIUM (NA) 137 MEQ/L (136-145)
[2017-08-10 13:57] LABS: PROTHROMBIN TIME - PATIENT 10.4 SEC (9.8-11.6)
[2017-08-10 13:58] LABS: CALCIUM 8.6 MG/DL (8.5-10.1); OVALOCYTES 1+ (NORMAL)
[2017-08-10 13:59] LABS: ALBUMIN 3.4 GM/DL (3.4-5.0); BLOOD UREA NITROGEN 7 MG/DL (7-18); GLUCOSE,RANDOM 83 MG/DL (74-106)
[2017-08-10 14:02] LABS: ALT (GPT) 20 U/L (10-53); AST (GOT) 40 U/L (15-37); CREATININE 0.82 MG/DL (0.50-1.00); GLOMERULAR FILTRATION RATE 97 ML/MIN (>89)
[2017-08-10 14:04] LABS: TOTAL BILIRUBIN ADULT 0.3 MG/DL (0.2-1.0); TOTAL PROTEIN 8.1 GM/DL (6.4-8.2)
--- NOTE | 2017-08-10 14:04 | RADRPT ---
EXAM DATE/TIME: 08/10/2017 13:48 [facility] COMPARISON: CHEST PA & LAT, July 30, 2017, 18:12. INDICATIONS : Chest pain. MEDICAL HISTORY : None. SURGICAL HISTORY : None. ENCOUNTER: Sequela ACUITY: 1 month PAIN SCORE: 0/10 LOCATION: Right chest FINDINGS: Clear lungs. Cardiomegaly. Osseous structures are intact. CONCLUSION: No significant change has occurred. Mesfin Lares MD on August 10, 2017 at 14:02 Board Certified Radiologist. This report was verified electronically.
[2017-08-10 14:05] LABS: ALKALINE PHOSPHATASE 83 U/L (45-117)
[2017-08-10] MEDS ORDERED: LEVA500T33 PO (14:19)
--- NOTE | 2017-08-10 14:20 | PD ---
HPI Chief Complaint: Cold / Flu Symptoms Time Seen by Provider: 12:59 Travel History International Travel<30 days: No Contact w/Intl Traveler<30days: No Traveled to known affect area: No History of Present Illness HPI This is a 32-year-old female presenting the ER complaining of cough for the last week, cough is productive of yellow sputum, she denies any fever chills or night sweats or any pain in her chest. She did also denies any nausea or vomiting area. Patient was here before on July 30 for the same symptoms and workup was done for chest pain and she was discharged. She currently denies any pain in her chest but still complaining of the cough. She denies any shortness of breath or palpitations or sweating. No recent weight loss or difficulty swallowing. PFSH Past Medical History Hx Anticoagulant Therapy: No Asthma: Yes Blood Disorders: No Cancer: No Cardiovascular Problems: No Diabetes: Yes (gestationl) Patient Takes Glucophage: No Diminished Hearing: No Genitourinary: No Immune Disorder: No Musculoskeletal: No Neurologic: No Reproductive: No Respiratory: Yes (ASTHMA) Immunizations Current: Yes Pneumonia: Yes Tetanus Vaccination: Unknown ?: Not LMP: 07/06/17 : 3 Para: 3 Past Surgical History Section: Yes Gynecologic Surgery: Yes () Social History Alcohol Use: Yes (RARELY) Tobacco Use: No Substance Use: No Allergies-Medications (Allergen,Severity, Reaction): Coded Allergies: No Known Allergies (Verified Adverse Reaction, Unknown, 07/30/17) Reported Meds & Prescriptions Reported Meds & Active Scripts Active No Active Prescriptions or Reported Medications Review of Systems Except as stated in HPI: all other systems reviewed are Neg Physical Exam Narrative GENERAL: Alert oriented 3 no acute distress. SKIN: Focused skin assessment warm/dry. HEAD: Atraumatic. Normocephalic. EYES: Pupils equal and round. No scleral icterus. No injection or drainage. ENT: No nasal bleeding or discharge. Mucous membranes pink and moist. NECK: Trachea midline. No JVD. CARDIOVASCULAR: Regular rate and rhythm. No murmur appreciated. RESPIRATORY: No accessory muscle use. Clear to auscultation. Breath sounds equal bilaterally. GASTROINTESTINAL: Abdomen soft, non-tender, nondistended. Hepatic and splenic margins not palpable. MUSCULOSKELETAL: No obvious deformities. No clubbing. No cyanosis. No edema. NEUROLOGICAL: Awake and alert. No obvious cranial nerve deficits. Motor grossly within normal limits. Normal speech. PSYCHIATRIC: Appropriate mood and affect; insight and judgment normal. Data Data Last Documented VS Vital Signs Date Time Temp Pulse Resp B/P (MAP) Pulse Ox O2 Delivery O2 Flow Rate FiO2 08/10/17 12:50 99.3 106 18 152/97 (115) 99 Orders Orders Chest, Pa & Lat (08/10/17 ) Complete Blood Count With Diff (08/10/17 13:06) Comprehensive Metabolic Panel (08/10/17 13:06) Prothrombin Time / Inr (Pt) (08/10/17 13:06) Act Partial Throm Time (Ptt) (08/10/17 13:06) Ed Discharge Order (08/10/17 14:08) Labs Laboratory Tests Test 08/10/17 13:30 White Blood Count 7.7 TH/MM3 Red Blood Count 4.33 MIL/MM3 Hemoglobin 8.8 GM/DL Hematocrit 29.1 % Mean Corpuscular Volume 67.2 FL Mean Corpuscular Hemoglobin 20.4 PG Mean Corpuscular Hemoglobin Concent 30.3 % Red Cell Distribution Width 19.3 % Platelet Count 383 TH/MM3 Mean Platelet Volume 8.0 FL Neutrophils (%) (Auto) 69.1 % Lymphocytes (%) (Auto) 18.9 % Monocytes (%) (Auto) 6.2 % Eosinophils (%) (Auto) 4.6 % Basophils (%) (Auto) 1.2 % Neutrophils # (Auto) 5.2 TH/MM3 Lymphocytes # (Auto) 1.5 TH/MM3 Monocytes # (Auto) 0.5 TH/MM3 Eosinophils # (Auto) 0.4 TH/MM3 Basophils # (Auto) 0.1 TH/MM3 CBC Comment AUTO DIFF Differential Comment AUTO DIFF CONFIRMED Platelet Estimate NORMAL Platelet Morphology Comment NORMAL Ovalocytes 1+ Prothrombin Time 10.4 SEC Prothromb Time International Ratio 1.0 RATIO Activated Partial Thromboplast Time 25.0 SEC Blood Urea Nitrogen 7 MG/DL Creatinine 0.82 MG/DL Random Glucose 83 MG/DL Total Protein 8.1 GM/DL Albumin 3.4 GM/DL Calcium Level 8.6 MG/DL Alkaline Phosphatase 83 U/L Aspartate Amino Transf (AST/SGOT) 40 U/L Alanine Aminotransferase (ALT/SGPT) 20 U/L Total Bilirubin 0.3 MG/DL Sodium Level 137 MEQ/L Potassium Level 4.6 MEQ/L Chloride Level 105 MEQ/L Carbon Dioxide Level 26.0 MEQ/L Anion Gap 6 MEQ/L Estimat Glomerular Filtration Rate 97 ML/MIN MDM Medical Decision Making Medical Screen Exam Complete: Yes Emergency Medical Condition: Yes Differential Diagnosis Bronchitis, pneumothorax, pharyngitis, malignancy. Narrative Course This is a 32-year-old female presents to the ER complaining of cough productive of yellow sputum for the last week. She was here before an extensive workup was done for chest pain and CTA of the chest showed the mediastinal mass that was unknown if it was lymphoma or an enlarged lymph node and was recommended for her to follow-up as an outpatient for possible PET scan or biopsy. Her labs have not changed from previous admission and chest x-ray have not changed either although she still have symptoms. I will go ahead and give her a course of Levaquin antibiotics and I explained to her that she will need to follow-up on the mediastinal mass to rule out malignancy. Patient denies any chest pain or shortness of breath or recent weight loss or difficulty swallowing and her labs are not concerning for malignancy although it shows anemia. I had the long conversation with the patient and she understands the importance of following up on the mediastinal mass and she agrees. Diagnosis Primary Impression: Bronchitis Additional Impression: Mediastinal mass Additional Instructions: Follow-up with primary care physician as well as underlay stitcher for the mediastinal mass and return to the ER if symptoms change or do not improve. Scripts Levofloxacin (Levaquin) 500 Mg Tablet 500 MG PO DAILY for Infection for 5 Days, #5 TAB 0 Refills Prov: Long Ayala MD 08/10/17 Disposition: 01 DISCHARGE HOME Condition: Stable Long Ayala MD Aug 10, 2017 14:20
[2017-08-10 14:36] VITALS: BP 149/90; PULSE 82; RESP 18; O2SAT 100
== END 2017-08-10 14:35 | disposition home or self-care (01) ==
LOC: PHED 12:45
DX: J40 Bronchitis, not specified as acute or chronic (principal); R93.8 Abnormal findings on diagnostic imaging of other specified body structures
CPT/HCPCS: 71046; 80053; 85025; 85610; 85730; 99284

== ENCOUNTER 2017-08-14 19:03 | Emergency (ER) | payer MEDICAID, OTHER ==
[~2017-08-14] VITALS: Ht 165.1 cm; Wt 105.0 kg
[~2017-08-14 19:03] MED LIST changes: -AMOX875T PO; -AZIT250T3 PO; -FERR1TAB36 PO; -FEXO15TA PO; -FLUT1SPR5 EACH NARE; +LEVA500T33 PO; -OSEL75 PO
[2017-08-14 19:32] VITALS: BP 169/73; PULSE 102; RESP 16; TEMP 99.5; O2SAT 100
[2017-08-14 20:49] LABS: BASOPHIL # 0.1 TH/MM3 (0-0.2); BASOPHIL % 0.7 % (0.0-2.0); EOSINOPHIL # 0.3 TH/MM3 (0-0.4); EOSINOPHIL % 3.3 % (0.0-4.0); HEMATOCRIT 29.3 % (35.0-46.0); HEMOGLOBIN 8.9 GM/DL (11.6-15.3); LYMPH % 21.3 % (9.0-44.0); LYMPHOCYTE # 1.9 TH/MM3 (1.0-4.8); MEAN CORPUSCULAR HEMOGLOBIN 20.4 PG (27.0-34.0); MEAN CORPUSCULAR HGB CONC 30.5 % (32.0-36.0); MEAN PLATELET VOLUME 7.4 FL (7.0-11.0); MONO % 9.2 % (0.0-8.0); MONOCYTE # 0.8 TH/MM3 (0-0.9); NEUT % 65.5 % (16.0-70.0); PLATELET COUNT 391 TH/MM3 (150-450); RED BLOOD COUNT 4.38 MIL/MM3 (4.00-5.30); RED CELL DISTRIBUTION WIDTH 20.8 % (11.6-17.2); WHITE BLOOD COUNT 9.1 TH/MM3 (4.0-11.0)
[2017-08-14 21:05] VITALS: RESP 18; O2SAT 98
[2017-08-14 21:12] LABS: BICARBONATE 23.5 MEQ/L (21.0-32.0); BLOOD UREA NITROGEN 12 MG/DL (7-18); CALCIUM 9.1 MG/DL (8.5-10.1); CHLORIDE 107 MEQ/L (98-107); CREATININE 0.89 MG/DL (0.50-1.00); GLOMERULAR FILTRATION RATE 88 ML/MIN (>89); GLUCOSE,RANDOM 84 MG/DL (74-106); SODIUM (NA) 139 MEQ/L (136-145)
--- NOTE | 2017-08-14 21:14 | PD ---
HPI Chief Complaint: General Weakness Time Seen by Provider: 21:03 Travel History International Travel<30 days: No Contact w/Intl Traveler<30days: No Traveled to known affect area: No History of Present Illness HPI 32-year-old female here for evaluation of flulike symptoms, intermittent chest pains, and feeling as though she may have a syncopal episode. Patient reports that the symptoms have been going on for several weeks. She has been here several times for this in the past 2 weeks with one admission to the chest pain center. She had a CT pulmonary angiogram that shows a soft tissue density in the anterior mediastinum measuring 2.8 x 1.6 cm which is indeterminant with outpatient PET/CT scan recommended. She has not yet had the scan performed. She states that at night she feels as though her heart rate is slowing and she intermittently has chest discomfort. She has had a slight cough that was productive, no longer productive. She also states that her sore throat has resolved. No vomiting or diarrhea. No abdominal pain. PFSH Past Medical History Hx Anticoagulant Therapy: No Asthma: Yes Blood Disorders: No Cancer: No Cardiovascular Problems: No Diabetes: Yes (gestational) Patient Takes Glucophage: No Diminished Hearing: No Genitourinary: No Immune Disorder: No Musculoskeletal: No Neurologic: No Reproductive: No Respiratory: Yes (ASTHMA) Immunizations Current: Yes Pneumonia: Yes Tetanus Vaccination: < 5 Years Influenza Vaccination: No ?: Not LMP: 08/14/2017 : 3 Para: 3 Past Surgical History Section: Yes Gynecologic Surgery: Yes () Social History Alcohol Use: Yes (RARELY) Tobacco Use: No Substance Use: No Allergies-Medications (Allergen,Severity, Reaction): Coded Allergies: No Known Allergies (Verified Adverse Reaction, Unknown, 08/14/17) Reported Meds & Prescriptions Reported Meds & Active Scripts Active Levaquin (Levofloxacin) 500 Mg Tablet 500 Mg PO DAILY 5 Days Review of Systems Except as stated in HPI: all other systems reviewed are Neg Physical Exam Narrative GENERAL: Well-developed, well-nourished, comfortable, no apparent distress. SKIN: Focused skin assessment warm/dry. HEAD: Atraumatic. Normocephalic. EYES: Pupils equal and round. No scleral icterus. No injection or drainage. ENT: No nasal bleeding or discharge. Mucous membranes pink and moist. NECK: Trachea midline. No JVD. CARDIOVASCULAR: Regular rate and rhythm. No murmur appreciated. RESPIRATORY: No accessory muscle use. Clear to auscultation. Breath sounds equal bilaterally. GASTROINTESTINAL: Abdomen soft, non-tender, nondistended. MUSCULOSKELETAL: No obvious deformities. No clubbing. No cyanosis. No edema. NEUROLOGICAL: Awake and alert. No obvious cranial nerve deficits. Motor grossly within normal limits. Normal speech. PSYCHIATRIC: Appropriate mood and affect; insight and judgment normal. Data Data Last Documented VS Vital Signs Date Time Temp Pulse Resp B/P (MAP) Pulse Ox O2 Delivery O2 Flow Rate FiO2 08/14/17 22:11 82 16 98 Room Air 08/14/17 19:32 99.5 Orders Orders Electrocardiogram (08/14/17 19:52) Complete Blood Count With Diff (08/14/17 19:52) Basic Metabolic Panel (Bmp) (08/14/17 19:52) Ckmb (Isoenzyme) Profile (08/14/17 19:52) Troponin I (08/14/17 19:52) Chest, Single Ap (08/14/17 19:52) Iv Access Insert/Monitor (08/14/17 19:52) Ecg Monitoring (08/14/17 19:52) Oxygen Administration (08/14/17 19:52) Oximetry (08/14/17 19:52) Sodium Chlor 0.9% 1000 Ml Inj (Ns 1000 M (08/14/17 21:15) Influenzae A/B Antigen (08/14/17 21:11) Group A Rapid Strep Screen (08/14/17 21:11) Urinalysis - C+S If Indicated (08/14/17 21:11) Ed Urine Pregnancytest Poc (08/14/17 21:11) Acetaminophen (Tylenol) (08/14/17 21:15) CKMB (08/14/17 20:35) CKMB% (08/14/17 20:35) Strep Culture (Group A) (08/14/17 21:44) Mandatory Outpatient Referral (08/14/17 23:43) Labs Laboratory Tests Test 08/14/17 20:35 3 21:45 White Blood Count 9.1 TH/MM3 Red Blood Count 4.38 MIL/MM3 Hemoglobin 8.9 GM/DL Hematocrit 29.3 % Mean Corpuscular Volume 67.0 FL Mean Corpuscular Hemoglobin 20.4 PG Mean Corpuscular Hemoglobin Concent 30.5 % Red Cell Distribution Width 20.8 % Platelet Count 391 TH/MM3 Mean Platelet Volume 7.4 FL Neutrophils (%) (Auto) 65.5 % Lymphocytes (%) (Auto) 21.3 % Monocytes (%) (Auto) 9.2 % Eosinophils (%) (Auto) 3.3 % Basophils (%) (Auto) 0.7 % Neutrophils # (Auto) 6.0 TH/MM3 Lymphocytes # (Auto) 1.9 TH/MM3 Monocytes # (Auto) 0.8 TH/MM3 Eosinophils # (Auto) 0.3 TH/MM3 Basophils # (Auto) 0.1 TH/MM3 CBC Comment DIFF FINAL Differential Comment Blood Urea Nitrogen 12 MG/DL Creatinine 0.89 MG/DL Random Glucose 84 MG/DL Calcium Level 9.1 MG/DL Sodium Level 139 MEQ/L Potassium Level 3.5 MEQ/L Chloride Level 107 MEQ/L Carbon Dioxide Level 23.5 MEQ/L Anion Gap 9 MEQ/L Estimat Glomerular Filtration Rate 88 ML/MIN Total Creatine Kinase 162 U/L Creatine Kinase MB 0.7 NG/ML Troponin I LESS THAN 0.02 NG/ML Urine Color YELLOW Urine Turbidity CLEAR Urine pH 7.5 Urine Specific [place] 1.021 Urine Protein TRACE mg/dL Urine Glucose (UA) NEG mg/dL Urine Ketones NEG mg/dL Urine Occult Blood NEG Urine Nitrite NEG Urine Bilirubin NEG Urine Urobilinogen LESS THAN 2.0 MG/DL Urine Leukocyte Esterase NEG Urine WBC LESS THAN 1 /hpf Urine Squamous Epithelial Cells 2 /hpf Urine Mucus FEW /lpf Microscopic Urinalysis Comment CULT NOT INDICATED MDM Medical Decision Making Medical Screen Exam Complete: Yes Emergency Medical Condition: Yes Medical Record Reviewed: Yes Interpretation(s) EKG: Sinus, rate 82, normal axis, normal intervals, no acute ischemic abnormality. Differential Diagnosis Influenza, viral illness, URI, pneumonia, pharyngitis, anemia, chest mass Narrative Course Initial vital signs show heart rate of 102 which improved to 82 without any intervention, blood pressure 169/73, pulse ox 100% on room air, oral temperature 99.5F. CBC: WBC 9.1, hemoglobin 8.9, hematocrit 29.3, MCV 67, platelets 391. Anemia is around her baseline BMP is unremarkable. Cardiac enzymes are negative. UA is not suggestive of UTI. Chest x-ray: Hypoinflation with no acute cardiopulmonary process. Patient was made aware of all findings. She is likely suffering from a viral URI. I again discussed the importance of follow-up to have a PET/CT scan to further evaluate the mediastinal mass seen on previous admission here. I placed a mandatory outpatient referral for her for oncology as well. She is stable for discharge home with outpatient follow-up. She was advised when to return to the emergency department. She is requesting a work note. She verbalizes understanding and agreement with plan. Diagnosis Primary Impression: URI (upper respiratory infection) Qualified Codes: J06.9 - Acute upper respiratory infection, unspecified Referrals: Shaw Hand MD 3 days Oncologist Primary Care Physician 3 days Additional Instructions: Follow-up with a primary care physician this week. Return to the emergency department for worsening symptoms or any other concerns. Disposition: 01 DISCHARGE HOME Condition: Stable Isreal Kessler MD Aug 14, 2017 21:14
[2017-08-14] MEDS ORDERED: SODIUM CHLOR 0.9% 1000 ML INJ 1,000 ML IV ONE (21:15)
[2017-08-14] MEDS ORDERED: ACETAMINOPHEN 325 MG TAB PO ONE (21:15)
[2017-08-14 21:16] LABS: TROPONIN I LESS THAN 0.02 NG/ML (0.02-0.05)
[2017-08-14 22:11] VITALS: PULSE 82; RESP 16; O2SAT 98
--- NOTE | 2017-08-14 22:53 | RADRPT ---
EXAM DATE/TIME: 08/14/2017 22:32 [facility] COMPARISON: CHEST SINGLE AP, July 11, 2016, 19:24. INDICATIONS : Chest pain. MEDICAL HISTORY : None. SURGICAL HISTORY : None. ENCOUNTER: Initial ACUITY: 1 day PAIN SCORE: 7/10 LOCATION: Bilateral chest FINDINGS: A single view of the chest demonstrates the lungs to be symmetrically hypoinflation with no acute inf iltrate or effusion. Heart size is normal. Osseous structures are intact. CONCLUSION: Hypoinflation with no acute cardiopulmonary process. Sujit Kimbrough MD on August 14, 2017 at 22:51 Board Certified Radiologist. This report was verified electronically.
[2017-08-14 23:23] LABS: BILIRUBIN, URINE NEG (NEG); BLOOD, URINE NEG (NEG); GLUCOSE,URINE NEG (NEG); KETONE, URINE NEG (NEG); MUCUS URINE FEW /lpf (OCC); NITRITE,URINE NEG (NEG); PH, URINE 7.5 (5.0-8.5); SQUAMOUS EPITHELIAL CELL URINE 2 /hpf (0-5); URINE COLOR YELLOW (YELLW/STRAW); URINE LEUKOCYTE ESTERASE NEG (NEG)
--- NOTE | 2017-08-15 16:42 | EKG ---
Date Performed: 08/14/2017 Time Performed: 20:28:24 PTAGE: 32 years EKG: Sinus rhythm NORMAL ECG Since PREVIOUS TRACING , no significant change noted PREVIOUS TRACIN07/30/2017 22.36 DOCTOR: Joe March Interpretating Date/Time 08/15/2017 16:40:55
== END 2017-08-15 00:43 | disposition home or self-care (01) ==
LOC: NEPD 19:03
DX: J06.9 Acute upper respiratory infection, unspecified (principal); J45.909 Unspecified asthma, uncomplicated
CPT/HCPCS: 71045; 80048; 81001; 82550; 82552; 84484; 84703; 85025; 87081; 87804; 87880; 93005